=== PATIENT | male | born 1945 | race Caucasian/White ===

== ENCOUNTER 2022-02-11 08:01 | Day surgery (SDC) | payer MEDICARE ==
[2022-02-03 17:04] LABS: BASOPHILS # (AUTO) 0.1 X10'3 (0-0.2); BASOPHILS % (AUTO) 1.2 % (0-1); EOSINOPHILS # (AUTO) 0.5 X10'3 (0-0.9); LYMPHOCYTES % (AUTO) 25.2 % (21-51); MEAN CORPUSCULAR HEMOGLOBIN 31.3 PG (27.0-31.0); MEAN CORPUSCULAR HGB CONC 33.3 g/dL (33.0-36.5); MEAN PLATELET VOLUME 8.4 FL (7.4-10.4); MONOCYTES # (AUTO) 0.8 X10'3 (0-0.9); MONOCYTES % (AUTO) 9.7 % (2-12); NEUTROPHILS # (AUTO) 4.6 X10'3 (1.8-7.7); NEUTROPHILS % (AUTO) 57.9 % (42-75); PRE OP HEMATOCRIT 50.2 % (42.0-52.0); PRE OP HEMOGLOBIN 16.7 g/dL (14.0-17.9); PRE OP PLATELET COUNT 218 X10'3 (140-440); RED BLOOD COUNT 5.34 X10'6 (4.70-6.10); RED CELL DISTRIBUTION WIDTH 14.1 % (11.5-14.5)
[2022-02-03 17:17] LABS: ALBUMIN 3.6 G/DL (3.4-5.0); ALBUMIN/GLOBULIN RATIO 1.1 (1.1-1.5); ALKALINE PHOSPHATASE 70 IU/L (46-116); BLOOD UREA NITROGEN 19 MG/DL (7-18); BUN/CREATININE RATIO 16.7 (5.4-32.0); CALCIUM 9.1 MG/DL (8.5-10.1); CHLORIDE 105 MMOL/L (99-107); CREATININE 1.14 MG/DL (0.60-1.10); PRE OP ALT 27 U/L (30-65); PRE OP ANION GAP 5 (8-16); PRE OP AST 42 U/L (10-37); PRE OP BILIRUB, TOTAL 1.1 MG/DL (0.0-1.0); PRE OP GLUCOSE 97 MG/DL (70-104); PRE OP POTASSIUM 4.1 MMOL/L (3.4-5.1); PRE OP SODIUM 143 MMOL/L (135-145); TOTAL CARBON DIOXIDE 33.2 MMOL/L (24-32); eGFR 62 ML/MIN
[2022-02-11] VITALS (14 sets, daily range): BP systolic 100–148; BP diastolic 61–96
[~2022-02-11] VITALS: Ht 188 cm; Wt 101.5 kg
[~2022-02-11 08:01] MED LIST: ATOR20TA PO; BUPIVAcaine 0.5% inj/PF 30 ML ONE; DOCUMENT DATE & TIME OF BETA-BLOCKER PO ONE; EZET10TA48 PO; FENO145T38 PO; LEVO100T46 PO; LIDOcaine 1% 30ml preserv. free vial ONE; LISI10TA27 PO; METO50TA16 PO; RIVA10TA PO; ceFAZolin inj. 2,000 MG in dextrose 5%-water 100 ML IV ONE; famotidine 20mg tablet PO ONE; ringers solution, lacted 1,000 ML IV SCH
[2022-02-11] MEDS ORDERED: fentaNYL/PF 50MCG/1 ML 2ML syringe ONE (10:17)
[2022-02-11] MEDS ORDERED: sevoflurane 250ml liquid IH ONE (10:21)
[2022-02-11] MEDS ORDERED: BUPIVAcaine 0.5% inj/PF 30 ml vial IJ ONE (10:41)
[2022-02-11] MEDS ORDERED: ringers solution, lacted 1,000 ML IV SCH (11:05)
[2022-02-11] MEDS ORDERED: morphine 2 MG/ML inj. syringe IV PRN (11:05)
[2022-02-11] MEDS ORDERED: HYDROmorphone/PF 0.2 MG/ML SYRINGE IV PRN ×2 (11:05)
[2022-02-11] MEDS ORDERED: ondansetron/PF 4mg/2ml inj IV PRN (11:05)
[2022-02-11] MEDS ORDERED: rocuronium 10mg/ml inj IV ONE (11:11)
[2022-02-11] MEDS ORDERED: LIDOcaine 2% (20mg/ml) 5ml vial ONE (11:11)
[2022-02-11] MEDS ORDERED: propofol inj 20 ML IV ONE (11:11)
[2022-02-11] MEDS ORDERED: dexamethasone sod phosphate 4mg/ml inj. ONE (11:11)
[2022-02-11] MEDS ORDERED: ondansetron/PF 4mg/2ml inj ONE (11:11)
[2022-02-11] MEDS ORDERED: neostigmine methylsulfate 1 MG/ML 10ml vial ONE (11:11)
[2022-02-11] MEDS ORDERED: glycopyrrolate 0.2mg/ml inj ONE (11:11)
[2022-02-11] MEDS ORDERED: acetaminophen 1,000mg/100ml IV 100 ML IV ONE (11:11)
[2022-02-11] MEDS ORDERED: sugammadex 200mg/2ml injection IV ONE (11:24)
[2022-02-11] MEDS ORDERED: HYDROcodone/acetaminophen 5mg/325mg tablet PO PRN (11:30)
--- NOTE | 2022-02-11 11:30 | NUR ---
Received from OR via , accompanied by Anesthesiologist SUMIT and OR NURSE report given by Anesthesiolgist. PT IS DROWSY YET RESPONDS TO VERBAL COMMANDS. PT HAS A 20G TO LEFT HAND AND 3 LAP SITES WITH BANDAIDS; CDI. PT COUGHING; YAZMIN ORDERED. 10LPM OF 02 WITH MASK. VSS Addendum: 02/11/22 at 1159 by Kenna Anderson RN Amended: Links added.
[2022-02-11] MEDS ORDERED: ipratropium/albuterol 3ml nebule NEB PRN (11:40)
[2022-02-11] MEDS ORDERED: morphine 4 MG/ML inj SYRINge ONE (11:41)
--- NOTE | 2022-02-11 14:00 | NUR ---
BLADDER SCANNED PT FOR 114 ML'S OF URINE. REMOVED PT FROM MONITOR TO ALLOW PT TO MOVE ABOUT AND INITIATE URINE FLOW. VSS. PT STABLE ON HIS FEET. WILL CONTINUE TO MONITOR. Addendum: 02/11/22 at 1518 by Kenna Anderson RN Amended: Links added.
--- NOTE | 2022-02-11 16:20 | NUR ---
PER DR. GUPTA ORDERS LEE PLACED DUE TO PT INABILITY TO VOID. PT TOLERATED WELL. SPOUSE AND PT EDUCATED ON CARE AND REMOVAL OF LEE FOR THURSDAY MORNING. LEE PATENT AND DRAINING WELL. Addendum: 02/11/22 at 1700 by Kenna Anderson RN Amended: Links added.
== END 2022-02-11 16:30 | disposition home or self-care (01) ==
LOC: PAS 08:01
PROVIDERS: ATTEND Surgery
DX: K40.90 Unilateral inguinal hernia, without obstruction or gangrene, not specified as recurrent (principal); G47.30 Sleep apnea, unspecified; I48.91 Unspecified atrial fibrillation; I10 Essential (primary) hypertension; E03.9 Hypothyroidism, unspecified; Z79.899 Other long term (current) drug therapy; Z95.0 Presence of cardiac pacemaker; Z98.890 Other specified postprocedural states
CPT/HCPCS: 36415; 49650; 80053; 82948; 85025; 94640; 94760; C1781; J0131; J0690; J1100; J2270; J2405; J2704; J2710; J3010; J3490; J7030; J7060; J7120; S0020; Z7506; Z7508; Z7512; A4215; A4618